=== PATIENT | female | born 1975 | race American Indian/Alaskan Native ===

== ENCOUNTER 2016-12-01 22:06 | Emergency (ER) | payer OTHER ==
[2016-12-01] MEDS ORDERED: TYLENOL ONE (22:44)
[2016-12-01] MEDS ORDERED: TYLENOL PO ONE (22:48)
--- NOTE | 2016-12-02 00:55 | Emergency Department Report ---
ED Lower Extremity HPI - General Chief Complaint: Extremity Injury, Lower Stated Complaint: RIGHT KNEE PAIN AND SWELLING Time Seen by Provider: 12/02/16 00:54 Source: patient Mode of arrival: Ambulatory Limitations: No Limitations - History of Present Illness Initial Comments: 47-year-old female presents to emergency room with complaint of right knee injury since 3 weeks ago. Patient tripped and fell on to her right knee. She appeared since been walking on it but increasingly having pain to her right knee and swelling. Denies any numbness tingling weakness right lower extremity. Denies any other injuries. MD Complaint: knee injury -: Gradual, week(s) (few) Injury: Knee: Right (anterior aspect) Type of Injury: blunt, other (fall) Place: home Severity: moderate Severity scale (0 -10): 3 Improves With: nothing Worsens With: movement Context: fall Associated Symptoms: swelling Treatments Prior to Arrival: cold therapy - Related Data Previous Rx's Medication Instructions Recorded Last Taken Type Hydrochlorothiazide 25 mg PO DAILY #30 tablet 09/05/14 Unknown Rx Cyclobenzaprine [Flexeril 10mg] 10 mg PO TID PRN #20 tablet 11/05/14 Unknown Rx Ibuprofen [Motrin] 600 mg PO Q8H PRN #20 tablet 11/05/14 Unknown Rx Prednisone [Prednisone 10 mg 10 mg PO .TAPER #1 tab.ds.pk 11/05/14 Unknown Rx (6-Day Pack, 21 Tabs)] Diclofenac Sodium 75 mg PO BID #20 tablet. 12/02/16 Unknown Rx traMADol [Ultram] 50 mg PO Q6HR PRN #14 tablet 12/02/16 Unknown Rx Allergies Allergy/AdvReac Type Severity Reaction Status Date / Time No Known Allergies Allergy Verified 08/10/14 13:44 ED Review of Systems ROS: Stated complaint: RIGHT KNEE PAIN AND SWELLING Other details as noted in HPI Comment: All other systems reviewed and negative Constitutional: denies: chills, fever Eyes: denies: eye pain, eye discharge, vision change ENT: denies: ear pain, throat pain Respiratory: denies: cough, shortness of breath, wheezing Cardiovascular: denies: chest pain, palpitations Endocrine: no symptoms reported Gastrointestinal: denies: abdominal pain, nausea, diarrhea Genitourinary: denies: urgency, dysuria, discharge Musculoskeletal: as per HPI. denies: back pain, joint swelling, arthralgia Skin: as per HPI. denies: rash, lesions Neurological: denies: headache, weakness, paresthesias Psychiatric: denies: anxiety, depression Hematological/Lymphatic: denies: easy bleeding, easy bruising ED Past Medical Hx - Past Medical History Previous Medical History?: Yes Hx Hypertension: Yes Hx Asthma: Yes - Surgical History Past Surgical History?: Yes Additional Surgical History: hysterectomy. fibroids removed. - Social History Smoking Status: Never Smoker Substance Use Type: None - Medications Home Medications: Home Medications Medication Instructions Recorded Confirmed Last Taken Type Hydrochlorothiazide 25 mg PO DAILY #30 tablet 09/05/14 Unknown Rx Cyclobenzaprine [Flexeril 10mg] 10 mg PO TID PRN #20 tablet 11/05/14 Unknown Rx Ibuprofen [Motrin] 600 mg PO Q8H PRN #20 tablet 11/05/14 Unknown Rx Prednisone [Prednisone 10 mg 10 mg PO .TAPER #1 tab.ds.pk 11/05/14 Unknown Rx (6-Day Pack, 21 Tabs)] Diclofenac Sodium 75 mg PO BID #20 tablet.dr 12/02/16 Unknown Rx traMADol [Ultram] 50 mg PO Q6HR PRN #14 tablet 12/02/16 Unknown Rx ED Physical Exam - General Limitations: No Limitations General appearance: alert, in no apparent distress - Head Head exam: Present: atraumatic, normocephalic - Eye Eye exam: Present: normal appearance - ENT ENT exam: Present: mucous membranes moist - Neck Neck exam: Present: normal inspection - Respiratory Respiratory exam: Present: normal lung sounds bilaterally. Absent: respiratory distress - Cardiovascular Cardiovascular Exam: Present: regular rate, normal rhythm. Absent: systolic murmur, diastolic murmur, rubs, gallop - GI/Abdominal GI/Abdominal exam: Present: soft, normal bowel sounds - Extremities Exam Extremities exam: Present: normal inspection - Expanded Lower Extremity Exam Right Hip exam: Present: normal inspection, full ROM Upper Leg exam: Present: normal inspection, full ROM Knee exam: Present: tenderness, swelling (anterior patella), ecchymosis (mild anterior patellar area), pain w/ pronation/supination, full knee extension. Absent: deformity, dislocation, erythema, effusion, posterior draw sign, pain/ laxity with valgus Lower Leg exam: Present: normal inspection Ankle exam: Present: normal inspection, full ROM Foot/Toe exam: Present: normal inspection, full ROM Neuro vascular tendon exam: Present: no vascular compromise. Absent: motor deficit, sensory deficit, tendon deficit Gait: Positive: antalgic - Back Exam Back exam: Present: normal inspection - Neurological Exam Neurological exam: Present: alert, oriented X3 - Psychiatric Psychiatric exam: Present: normal affect, normal mood - Skin Skin exam: Present: warm, dry, intact, normal color. Absent: rash ED Course Vital Signs 12/01/16 22:45 Temperature 98.0 F Pulse Rate 80 Respiratory 20 Rate Blood Pressure 144/101 [Right] O2 Sat by Pulse 100 Oximetry - Reevaluation(s) Reevaluation #1: Patient feels better after receiving Toradol injection in the ER. 12/02/16 01:01 - Orthopedic Splinting/Casting Injury #1 Side: right Lower Extremity Injury Location: knee Lower Extremity Immobilizer: knee immobilizer Critical Care Time: No Critical care attestation.: If time is entered above; I have spent that time in minutes in the direct care of this critically ill patient, excluding procedure time. ED Disposition Clinical Impression: Contusion of right knee, initial encounter Qualifiers: Encounter type: initial encounter Qualified Code(s): S80.01XA - Contusion of right knee, initial encounter Disposition: DISCHARGED TO HOME OR SELFCARE Is pt being admited?: No Does the pt Need Aspirin: No Condition: Good Instructions: Knee Effusion (ED), Knee Immobilizer (ED) Prescriptions: Diclofenac Sodium 75 mg PO BID #20 tablet. traMADol [Ultram] 50 mg PO Q6HR PRN #14 tablet PRN Reason: Pain Referrals: DONALD PRUITT MD [Staff Physician] - 3-5 Days Forms: Work/School Release Form
[2016-12-02] MEDS ORDERED: TORADOL IM ONE (00:57)
[2016-12-02 01:29] VITALS: BP 132/78
--- NOTE | 2016-12-02 08:51 | XRay Report ---
RIGHT KNEE, 3 views: History: Knee pain. The bony architecture is intact without evidence of fracture or dislocation. No significant soft tissue abnormality is seen. IMPRESSION: Normal right knee.
== END 2016-12-02 01:23 | disposition home or self-care (01) ==
LOC: ED 22:06
DX: S80.01XA Contusion of right knee, initial encounter (principal); I10 Essential (primary) hypertension; J45.909 Unspecified asthma, uncomplicated; W19.XXXA Unspecified fall, initial encounter; Y93.89 Activity, other specified; Y99.8 Other external cause status; Y92.009 Unspecified place in unspecified non-institutional (private) residence as the place of occurrence of the external cause
CPT/HCPCS: 29505; 73562; 96372; 99283; J1885

== ENCOUNTER 2017-11-21 12:20 | Emergency (ER) | payer OTHER ==
[2017-11-21 12:37] VITALS: BP 137/97
[2017-11-21] MEDS ORDERED: MOTRIN PO ONE (14:50)
--- NOTE | 2017-11-21 14:54 | Emergency Department Report ---
- General Chief Complaint: Upper Respiratory Infection Stated Complaint: BODY ACHES Time Seen by Provider: 11/21/17 14:49 Source: patient Mode of arrival: Ambulatory Limitations: No Limitations - History of Present Illness Initial Comments: 42-year-old female presents to the emergency room complaining of body aches cough and flulike symptoms 3 days. Patient reports she's been trying [id number] TheraFlu and other [id number] medication without much relief. Patient reports a productive yellow sputum. She admits to headache and body aches fever and chills. She also admits to nausea and vomiting this morning 1 while heading to the emergency room. Patient did not get her flu vaccination. She does not have a primary care provider she does have a past medical history of asthma and hypertension. MD Complaint: cough -: days(s) (3) Severity scale (0 -10): 10 Consistency: intermittent Improves With: nothing Associated Symptoms: fever, chills, headache, cough, nausea Treatments Prior to Arrival: none - Related Data Previous Rx's Medication Instructions Recorded Last Taken Type Hydrochlorothiazide 25 mg PO DAILY #30 tablet 09/05/14 Unknown Rx Cyclobenzaprine [Flexeril 10mg] 10 mg PO TID PRN #20 tablet 11/05/14 Unknown Rx Ibuprofen [Motrin] 600 mg PO Q8H PRN #20 tablet 11/05/14 Unknown Rx Prednisone [Prednisone 10 mg 10 mg PO .TAPER #1 tab.ds.pk 11/05/14 Unknown Rx (6-Day Pack, 21 Tabs)] Diclofenac Sodium 75 mg PO BID #20 tablet. 12/02/16 Unknown Rx traMADol [Ultram] 50 mg PO Q6HR PRN #14 tablet 12/02/16 Unknown Rx Ibuprofen [Motrin 800 MG tab] 800 mg PO Q8HR PRN #30 tablet 11/21/17 Unknown Rx Allergies Allergy/AdvReac Type Severity Reaction Status Date / Time No Known Allergies Allergy Verified 08/10/14 13:44 ED Review of Systems ROS: Stated complaint: BODY ACHES Other details as noted in HPI Constitutional: chills, fever, malaise Eyes: denies: eye pain, eye discharge, vision change ENT: denies: ear pain, throat pain Respiratory: cough Cardiovascular: denies: chest pain, palpitations Endocrine: no symptoms reported Gastrointestinal: denies: abdominal pain, nausea, diarrhea Genitourinary: denies: urgency, dysuria, discharge Musculoskeletal: back pain, arthralgia Skin: denies: rash, lesions Neurological: headache Psychiatric: denies: anxiety, depression Hematological/Lymphatic: denies: easy bleeding, easy bruising ED Past Medical Hx - Past Medical History Previous Medical History?: Yes Hx Hypertension: Yes Hx Asthma: Yes - Surgical History Past Surgical History?: Yes Additional Surgical History: hysterectomy. fibroids removed. - Social History Smoking Status: Never Smoker Substance Use Type: Alcohol - Medications Home Medications: Home Medications Medication Instructions Recorded Confirmed Last Taken Type Hydrochlorothiazide 25 mg PO DAILY #30 tablet 09/05/14 Unknown Rx Cyclobenzaprine [Flexeril 10mg] 10 mg PO TID PRN #20 tablet 11/05/14 Unknown Rx Ibuprofen [Motrin] 600 mg PO Q8H PRN #20 tablet 11/05/14 Unknown Rx Prednisone [Prednisone 10 mg 10 mg PO .TAPER #1 tab.ds.pk 11/05/14 Unknown Rx (6-Day Pack, 21 Tabs)] Diclofenac Sodium 75 mg PO BID #20 tablet.dr 12/02/16 Unknown Rx traMADol [Ultram] 50 mg PO Q6HR PRN #14 tablet 12/02/16 Unknown Rx Ibuprofen [Motrin 800 MG tab] 800 mg PO Q8HR PRN #30 tablet 11/21/17 Unknown Rx ED Physical Exam - General Limitations: No Limitations General appearance: alert, in no apparent distress - Head Head exam: Present: atraumatic, normocephalic - Eye Eye exam: Present: normal appearance - ENT ENT exam: Present: mucous membranes moist - Neck Neck exam: Present: normal inspection - Respiratory Respiratory exam: Present: normal lung sounds bilaterally. Absent: respiratory distress - Cardiovascular Cardiovascular Exam: Present: regular rate, normal rhythm. Absent: systolic murmur, diastolic murmur, rubs, gallop - GI/Abdominal GI/Abdominal exam: Present: soft, normal bowel sounds - Extremities Exam Extremities exam: Present: normal inspection - Back Exam Back exam: Present: normal inspection - Neurological Exam Neurological exam: Present: alert, oriented X3 - Psychiatric Psychiatric exam: Present: normal affect, normal mood - Skin Skin exam: Present: warm, dry, intact, normal color. Absent: rash ED Course Vital Signs 11/21/17 11/21/17 12:34 15:02 Temperature 100 F H Pulse Rate 98 H Respiratory 18 18 Rate Blood Pressure 137/97 O2 Sat by Pulse 96 Oximetry ED Medical Decision Making - Medical Decision Making Patient's been evaluated by this provider fast track. Flu rapid, chest x-ray and ibuprofen ordered. Patient be reevaluated once results are back. Critical care attestation.: If time is entered above; I have spent that time in minutes in the direct care of this critically ill patient, excluding procedure time. ED Disposition Clinical Impression: Viral syndrome Disposition: DC-01 TO HOME OR SELFCARE Is pt being admited?: No Does the pt Need Aspirin: No Condition: Stable Instructions: Viral Syndrome (ED) Additional Instructions: Please take ibuprofen as needed for fever and body aches. Please drink plenty of fluids and advance diet as tolerated. Please follow-up to primary care provider symptoms persist or gets worse. Prescriptions: Ibuprofen [Motrin 800 MG tab] 800 mg PO Q8HR PRN #30 tablet PRN Reason: Pain Referrals: PRIMARY CARE, [Primary Care Provider] - 3-5 Days Forms: Work/School Release Form(ED)
--- NOTE | 2017-11-21 15:37 | XRay Report ---
ROUTINE CHEST, TWO VIEWS: HISTORY: Cough. The trachea, heart, mediastinal contour, lung sharif and bony thorax are unremarkable. IMPRESSION: Unremarkable chest x-ray.
== END 2017-11-21 17:27 | disposition home or self-care (01) ==
LOC: ED 12:20
DX: B34.9 Viral infection, unspecified (principal); I10 Essential (primary) hypertension; J45.909 Unspecified asthma, uncomplicated; Z90.710 Acquired absence of both cervix and uterus
CPT/HCPCS: 71046; 87400; 99284

== ENCOUNTER 2018-05-20 02:15 | Emergency (ER) | payer OTHER | END 2018-05-20 05:10 | disposition left against medical advice (07) | LOC: ED 02:15 | DX: R04.0 Epistaxis (principal); R11.0 Nausea; Z53.21 Procedure and treatment not carried out due to patient leaving prior to being seen by health care provider ==